=== PATIENT | female | born 1995 | race Caucasian/White ===

== ENCOUNTER 2020-06-07 17:22 | Emergency (ER) | payer MEDICAID ==
--- NOTE | 2020-06-07 18:28 | EDM.PDOC ---
ED HPI GENERAL MEDICAL PROBLEM - General Chief Complaint: General Stated Complaint: LT SIDE TOOTH PAIN Time Seen by Provider: 06/07/20 18:00 Source of Information: Reports: Patient History Limitations: Reports: No Limitations - History of Present Illness INITIAL COMMENTS - FREE TEXT/NARRATIVE: chief complaint: dental pain This is a 25 year old female present to the ER for dental pain. She was seen earlier today in [facility]. Given Toradol shot and amoxicillin. She reports still having pain on scale of 0 to 10 rates 9.5. She wouldn't be here but can't stand the pain anymore. Next Dental appointment June 27, 2020. 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: Social & Family History - Family History Family Medical History: Noncontributory - Tobacco Use Smoking Status *Q: Current Every Day Smoker Years of Tobacco use: 5 Packs/Tins Daily: 0.3 - Caffeine Use Caffeine Use: Reports: None - Recreational Drug Use Recreational Drug Use: No - Living Situation & Occupation Living situation: Reports: Single (lives in [facility] with family.) ED ROS GENERAL - Review of Systems Review Of Systems: See Below Constitutional: Reports: Other (dental pain) HEENT: Reports: Dental Pain, Ear Pain (left ear pain) Respiratory: Reports: No Symptoms Cardiovascular: Reports: No Symptoms Endocrine: Reports: No Symptoms GI/Abdominal: Reports: No Symptoms Skin: Reports: No Symptoms Neurological: Reports: No Symptoms Psychiatric: Reports: No Symptoms Hematologic/Lymphatic: Reports: No Symptoms Immunologic: Reports: No Symptoms ED EXAM, GENERAL - Physical Exam Exam: See Below Exam Limited By: No Limitations General Appearance: Alert, WD/WN, Mild Distress Eye Exam: Bilateral Eye: PERRL Ears: Normal External Exam, Normal Canal, Hearing Grossly Normal, Normal TMs Ear Exam: Left Ear: Tenderness Nose: Normal Inspection, Normal Mucosa, No Blood Throat/Mouth: Normal Inspection, Normal Lips, Other (left upper teeth with pain with touch, gums with mild inflammation. no cavities noted.) Head: Atraumatic, Normocephalic Neck: Normal Inspection, Supple, Non-Tender, Full Range of Motion Respiratory/Chest: No Respiratory Distress, Lungs Clear, Normal Breath Sounds, No Accessory Muscle Use, Chest Non-Tender Cardiovascular: Regular Rate, Rhythm, No Murmur Psychiatric: Normal Affect, Normal Mood Skin Exam: Warm, Dry, Intact, Normal Color, No Rash Lymphatic: No Adenopathy Course - Vital Signs Last Recorded V/S: Last Vital Signs Temp 36.3 C 06/07/20 18:08 Pulse 71 06/07/20 18:08 Resp 12 06/07/20 18:08 BP 127/55 L 06/07/20 18:08 Pulse Ox 97 06/07/20 18:08 Departure - Departure Time of Disposition: 18:39 Disposition: Home, Self-Care 01 Condition: Good Clinical Impression: Pain, dental - Discharge Information *PRESCRIPTION DRUG MONITORING PROGRAM REVIEWED*: Not Applicable *COPY OF PRESCRIPTION DRUG MONITORING REPORT IN PATIENT KRISTIE: Not Applicable Referrals: PCP,None [Primary Care Provider] - Forms: ED Department Discharge Care Plan Goals: Dental Pain -continue over the counter Motrin and Tylenol as directed -[place] one tablet every 4 to 6 hours as needed for pain #10 -soft diet, avoid hot or cold foods or drink -referral to Dental Clinic in am Return to ER for any nausea, vomiting, rash, fever, chills, facial swelling or a ny concerns. Sepsis Event Note (ED) - Evaluation Sepsis Screening Result: No Definite Risk - Focused Exam Vital Signs: Vital Signs Temp Pulse Resp BP Pulse Ox 06/07/20 18:08 36.3 C 71 12 127/55 L 97 06/07/20 17:51 36.3 C 71 12 127/55 L 97 - Problem List & Annotations (1) Pain, dental SNOMED Code(s): 63549638 Code(s): K08.89 - OTHER SPECIFIED DISORDERS OF TEETH AND SUPPORTING STRUCTURES Status: Acute Priority: High Current Visit: Yes - Problem List Review Problem List Initiated/Reviewed/Updated: Yes - Assessment/Plan Plan: Dental Pain -continue over the counter Motrin and Tylenol as directed -[place] one tablet every 4 to 6 hours as needed for pain #10 -soft diet, avoid hot or cold foods or drink -referral to Dental Clinic in am Return to ER for any nausea, vomiting, rash, fever, chills, facial swelling or any concerns.
== END 2020-06-07 18:42 | disposition home or self-care (01) ==
LOC: JP.ED 17:22
DX: K08.89 Other specified disorders of teeth and supporting structures (principal); F17.210 Nicotine dependence, cigarettes, uncomplicated
CPT/HCPCS: 99282

== ENCOUNTER 2020-06-09 10:35 | Emergency (ER) | payer MEDICAID ==
--- NOTE | 2020-06-09 11:06 | EDM.PDOC ---
ED HPI GENERAL MEDICAL PROBLEM - General Chief Complaint: ENT Problem Stated Complaint: LEFT SIDE TOOTH PAIN Time Seen by Provider: 06/09/20 10:57 Source of Information: Reports: Patient History Limitations: Reports: No Limitations - History of Present Illness INITIAL COMMENTS - FREE TEXT/NARRATIVE: Patient presents describing left upper jaw tooth pain present over the last cou ple of days. She denies any history of trauma to the tooth but believes that there may be some kind of cavity between 2 of the left upper teeth. Pain began earlier in the week and she contacted primary care because her dentist office was not available. The patient was placed on amoxicillin, given a shot of Toradol and has been using ibuprofen and Orajel intermittently. Nothing is helping. She gets intermittent shooting/stabbing pains from the left upper posterior teeth which go up along the side of her head and down into the mandible on the same side. She denies any drainage in the mouth or unusual tastes. She did not sleep well last night because of pain. She has a broken tooth on the right side up above but it does not cause discomfort for her. She is not sure when she would be able to get into her dentist in the near term. Onset: Sudden Duration: Intermittent Quality: Reports: Stabbing, Throbbing Severity: Moderate Improves with: Reports: None Worsens with: Reports: Eating Associated Symptoms: Reports: Headaches Left Tooth/Teeth Pain Score (Numeric/FACES): 7 - Related Data Allergies Allergy/AdvReac Type Severity Reaction Status Date / Time No Known Allergies Allergy Verified 06/07/20 18:11 Home Meds: Home Meds Amoxicillin 500 mg PO TID 06/07/20 [History] Hydrocodone/Acetaminophen [[place] 5-325 Tablet] 1 each PO Q4HR 06/09/20 [History] Ibuprofen 200 mg PO Q6HR 06/09/20 [History] Past Medical History - Past Health History Medical/Surgical History: Denies 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 ED EXAM, ENT - Physical Exam Exam: See Below Exam Limited By: No Limitations General Appearance: Mild Distress Mouth/Throat: Dental Pain. No: Dental Abcess (The pain is located on or around tooth #15. She describes a dark appearance and substance of the enamel of tooth #15. On closer illuminated inspection I see a small lozano zone but no other obvious surface defect. The gums are normal in appearance as is the rest of the mouth.), Peritonsillar Mass, Throat Swelling, Tongue Swelling Course - Vital Signs Last Recorded V/S: Last Vital Signs Temp 36.3 C 06/09/20 10:51 Pulse 80 06/09/20 10:51 Resp 14 06/09/20 10:51 BP 132/81 06/09/20 10:51 Pulse Ox 96 06/09/20 10:51 - Re-Assessments/Exams Free Text/Narrative Re-Assessment/Exam: 06/09/20 12:14 I discussed options for her including an injection of bupivacaine with epinephrine. She states that she wishes to avoid injections at this time. She has amoxicillin which may or may not change anything for her symptoms. She has been using ibuprofen 800 mg and I recommend she continue that 3 times a day. I discussed the use of chewing gum or dental wax to cover the painful area. She was sent with a prescription for hydrocodone 5/325 mg, 20 tablets; use as directed. If she is not feeling any relief, the option for bupivacaine injection always exists. Part of her description of symptoms actually sounds somewhat like trigeminal neuralgia but the patient is focused on her left upper tooth as being the source of discomfort. If she returns, other considerations may have to be entertained. Departure - Departure Time of Disposition: 11:22 Disposition: Home, Self-Care 01 Condition: Good Clinical Impression: Pain, dental - Discharge Information *PRESCRIPTION DRUG MONITORING PROGRAM REVIEWED*: Not Applicable *COPY OF PRESCRIPTION DRUG MONITORING REPORT IN PATIENT KRISTIE: Not Applicable Instructions: Acute Pain, Adult Referrals: PCP,None [Primary Care Provider] - Forms: ED Department Discharge Additional Instructions: Try using a piece of chewing gum molded over the painful tooth region to keep the air off of it. Another option is to get dental wax, which is used to cover the wires from races and apply that to the area between the teeth again hoping to keep air off the point of irritation. I recommend ibuprofen 800 mg 3 times a day regularly. You can use hydrocodone for additional pain relief but nothing will make this pain-free. Given how the gum area and tooth appear, occasionally people can have facial nerve irritation that gives the same kind of symptoms. Continue the previously prescribed antibiotic and contact your dental office when they reopen next week. If feeling worse, return here. You can receive an injection of an intermediate acting Novocain that would make the tooth pain free for about 6 hours. Sepsis Event Note (ED) - Evaluation Sepsis Screening Result: No Definite Risk - Focused Exam Vital Signs: Vital Signs Temp Pulse Resp BP Pulse Ox 06/09/20 10:51 36.3 C 80 14 132/81 96 06/09/20 10:45 36.3 C 80 14 132/81 96
== END 2020-06-09 11:34 | disposition home or self-care (01) ==
LOC: JP.ED 10:35
DX: K08.89 Other specified disorders of teeth and supporting structures (principal); Z79.899 Other long term (current) drug therapy; F17.210 Nicotine dependence, cigarettes, uncomplicated
CPT/HCPCS: 99282

== ENCOUNTER 2020-06-12 16:46 | Emergency (ER) | payer MEDICAID ==
--- NOTE | 2020-06-12 17:50 | EDM.PDOC ---
ED HPI GENERAL MEDICAL PROBLEM - General Chief Complaint: ENT Problem Stated Complaint: TOOTH PAIN Time Seen by Provider: 06/12/20 17:30 Source of Information: Reports: Patient, Old Records History Limitations: Reports: No Limitations - History of Present Illness INITIAL COMMENTS - FREE TEXT/NARRATIVE: Patient has continued pain with the last molar- left upper jaw. No abscess is noted. She is taking her amoxicillin TID as prescribed. She has had 30 tabs of Coral prescribed and states that she is taking them as prescribed. She does not appear to be seeking- I believe that she is legit in pain. She has a root canal scheduled for Thursday in [place]. She states that she is taking ibuprofen between norco doses around the clock without much relief. Orajel is not effective or he lpful either. 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, Other Medication(s) (norco) - Related Data Allergies Allergy/AdvReac Type Severity Reaction Status Date / Time No Known Allergies Allergy Verified 06/07/20 18:11 Home Meds: Home Meds Amoxicillin 500 mg PO TID 06/07/20 [History] Hydrocodone/Acetaminophen [[place] 5-325 Tablet] 1 each PO Q4HR 06/09/20 [History] Ibuprofen 200 mg PO Q6HR 06/09/20 [History] Past Medical History - Past Health History Medical/Surgical History: Denies 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 Denies: Ear Discharge, Eye Discharge, Eye Pain Respiratory: Reports: No Symptoms Cardiovascular: Reports: No Symptoms Endocrine: Reports: No Symptoms GI/Abdominal: Reports: No Symptoms : Reports: No Symptoms Musculoskeletal: Reports: No Symptoms Skin: Reports: No Symptoms Neurological: Reports: No Symptoms Psychiatric: Reports: No Symptoms Hematologic/Lymphatic: Reports: No Symptoms Immunologic: Reports: No Symptoms ED EXAM, ENT - Physical Exam Exam: See Below Exam Limited By: No Limitations General Appearance: Alert, WD/WN, Mild Distress Eye Exam: Bilateral Eye: PERRL, Other (pupils are not constricted) Ears: Normal External Exam, Normal Canal, Hearing Grossly Normal, Normal TMs Nose: Normal Inspection, Normal Mucousa Mouth/Throat: Normal Inspection, Normal Gums, Normal Oropharynx, Dental Pain, Dental Tenderness (last left upper molar). No: Gum Swelling, Lip Swelling, Peritonsillar Mass, Pharyngeal Erythema, Throat Pain, Throat Swelling, Tonsillar Erythema Head: Atraumatic, Normocephalic, Facial Tenderness (minor tenderness over frontal and maxillary sinuses on left side) Neck: Normal Inspection, Supple. No: Lymphadenopathy (R), Lymphadenopathy (L) Respiratory/Chest: No Respiratory Distress, Lungs Clear Cardiovascular: Normal Peripheral Pulses, Regular Rate, Rhythm Course - Vital Signs Last Recorded V/S: Last Vital Signs Temp 96.8 F L 06/12/20 17:21 Pulse 81 06/12/20 17:21 Resp 16 06/12/20 17:21 BP 138/83 06/12/20 17:21 Pulse Ox 99 06/12/20 17:21 Departure - Departure Time of Disposition: 17:45 Disposition: Home, Self-Care 01 Clinical Impression: Abscess of pulp of tooth, Pain, dental - Discharge Information *PRESCRIPTION DRUG MONITORING PROGRAM REVIEWED*: No *COPY OF PRESCRIPTION DRUG MONITORING REPORT IN PATIENT KRISTIE: Not Applicable Referrals: PCP,None [Primary Care Provider] - Forms: ED Department Discharge Additional Instructions: Keep your dental appointment for Thursday in [place]. You have been given Percocet (ten tabs) for pain relief. Continue with 600mg of ibuprofen every 6 hours with food and use the percocet for break through pain and at bedtime. Continue to eat soft foods and drink fluids to stay hydrated. Call or return to ED with any worsening of symptoms. Sepsis Event Note (ED) - Evaluation Sepsis Screening Result: No Definite Risk - Focused Exam Vital Signs: Vital Signs Temp Pulse Resp BP Pulse Ox 06/12/20 17:21 96.8 F L 81 16 138/83 99 06/12/20 16:57 96.8 F L 81 16 138/83 99 - Assessment/Plan Plan: discharge home with #10 percocet. will see dentist on thursday for planned root canal.
== END 2020-06-12 18:05 | disposition home or self-care (01) ==
LOC: JP.ED 16:46
DX: K04.01 Reversible pulpitis (principal); F17.210 Nicotine dependence, cigarettes, uncomplicated
CPT/HCPCS: 99282

== ENCOUNTER 2020-07-12 12:53 | Emergency (ER) | payer MEDICAID ==
--- NOTE | 2020-07-12 14:04 | EDM.PDOC ---
ED HPI GENERAL MEDICAL PROBLEM - General Chief Complaint: ENT Problem Stated Complaint: L & R SIDE TOOTH PAIN Time Seen by Provider: 07/12/20 13:45 Source of Information: Reports: Patient History Limitations: Reports: No Limitations - History of Present Illness INITIAL COMMENTS - FREE TEXT/NARRATIVE: 25-year-old female with dental pain. She was previously seen with an abscess on the left side and had a root canal she has another appointment to "finish the root canal" in 5 days. She has been taking Tylenol and ibuprofen and is not covering the pain. She called the dentist who sent her to the clinic who sent her to the emergency room. 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 She is miserable. 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: - Infectious Disease History Infectious Disease History: Reports: Chicken Pox Social & Family History - Family History Family Medical History: Noncontributory - Tobacco Use Smoking Status *Q: Current Every Day Smoker Years of Tobacco use: 5 Packs/Tins Daily: 0.5 Used Tobacco, but Quit: No Second Hand Smoke Exposure: Yes - Caffeine Use Caffeine Use: Reports: None - Recreational Drug Use Recreational Drug Use: No - Living Situation & Occupation Living situation: Reports: Single (lives in [facility] with family[facility] ED ROS ENT - Review of Systems Review Of Systems: See Below Constitutional: Denies: Fever, Chills Respiratory: Denies: Shortness of Breath Cardiovascular: Denies: Chest Pain GI/Abdominal: Denies: Nausea, Vomiting Skin: Denies: Erythema Neurological: Denies: Headache ED EXAM, ENT - Physical Exam Exam: See Below Exam Limited By: No Limitations General Appearance: Alert, No Apparent Distress (Looks uncomfortable but not distressed) Mouth/Throat: Other (Left second maxillary molar has recent dental work, there appears to be partial filling work on the right second molar) Head: Atraumatic Neck: Supple, Non-Tender. No: Lymphadenopathy (R), Lymphadenopathy (L) Respiratory/Chest: No Respiratory Distress, Lungs Clear Neurological: Alert, Oriented Psychiatric: Normal Affect, Normal Mood Skin: Warm, Dry Course - Vital Signs Last Recorded V/S: Last Vital Signs Temp 97.8 F 07/12/20 13:26 Pulse 77 07/12/20 13:26 Resp 18 07/12/20 13:26 BP 112/82 07/12/20 13:26 Pulse Ox 98 07/12/20 13:26 - Re-Assessments/Exams Free Text/Narrative Re-Assessment/Exam: 07/12/20 14:12 An additional 15 Percocet were given for extra pain control and she is to follow-up with a dentist as scheduled. Departure - Departure Time of Disposition: 14:10 Disposition: Home, Self-Care 01 Clinical Impression: Pain, dental - Discharge Information Instructions: Acute Pain, Adult Referrals: PCP,None [Primary Care Provider] - Forms: ED Department Discharge Care Plan Goals: Continue with ibuprofen on a regular basis and add stronger pain medication as needed. Recheck as scheduled. Sepsis Event Note (ED) - Evaluation Sepsis Screening Result: No Definite Risk - Focused Exam Vital Signs: Vital Signs Temp Pulse Resp BP Pulse Ox 07/12/20 13:26 97.8 F 77 18 112/82 98 07/12/20 13:23 97.8 F 77 18 112/82 98
== END 2020-07-12 14:10 | disposition home or self-care (01) ==
LOC: JP.ED 12:53
DX: K08.89 Other specified disorders of teeth and supporting structures (principal); F17.210 Nicotine dependence, cigarettes, uncomplicated
CPT/HCPCS: 99282

== ENCOUNTER 2020-07-25 12:42 | Emergency (ER) | payer MEDICAID ==
--- NOTE | 2020-07-25 13:31 | EDM.PDOC ---
ED HPI GENERAL MEDICAL PROBLEM - General Chief Complaint: ENT Problem Time Seen by Provider: 07/25/20 13:15 - History of Present Illness INITIAL COMMENTS - FREE TEXT/NARRATIVE: This is a 25-year-old female who presents with right upper molar dental pain. This is been an ongoing issue for her for the last 2 months. She has a cavity in one of her upper molars. She reports she was seen by dentist in [place], then referred to [place], where the provider was unable to work with her insurance. She has completed a course of antibiotics. Last night the pain became unbearable and she was up much of the night. She knows that the ED cannot offer her treatment for her dental condition, but is hoping to get better pain control. She denies any systemic symptoms such as fevers or chills, weakness, or fatigue. She reports she has a high pain tolerance but that Tylenol still is not working. 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: - Infectious Disease History Infectious Disease History: Reports: None Social & Family History - Family History Family Medical History: Noncontributory - Tobacco Use Smoking Status *Q: Current Every Day Smoker Years of Tobacco use: 5 Packs/Tins Daily: 0.5 - Caffeine Use Caffeine Use: Reports: None - Recreational Drug Use Recreational Drug Use: No - Living Situation & Occupation Living situation: Reports: Single (lives in [facility] with family.) ED ROS ENT - Review of Systems Review Of Systems: See Below Constitutional: Reports: No Symptoms HEENT: Reports: Dental Pain Respiratory: Reports: No Symptoms Cardiovascular: Reports: No Symptoms Endocrine: Reports: No Symptoms GI/Abdominal: Reports: No Symptoms : Reports: No Symptoms Musculoskeletal: Reports: No Symptoms Skin: Reports: No Symptoms Neurological: Reports: No Symptoms Psychiatric: Reports: No Symptoms Hematologic/Lymphatic: Reports: No Symptoms Immunologic: Reports: No Symptoms ED EXAM, ENT - Physical Exam Exam: See Below Exam Limited By: No Limitations General Appearance: Alert, No Apparent Distress Ears: Normal External Exam Nose: Normal Inspection Mouth/Throat: Other (dental josefina evident on right upper molar, no swelling or erythema) Head: Atraumatic, Normocephalic Neck: Normal Inspection Respiratory/Chest: No Respiratory Distress Cardiovascular: Regular Rate, Rhythm GI/Abdominal: No Distention Back: Normal Inspection Extremities: Normal Inspection Neurological: Alert, Oriented Psychiatric: Normal Affect, Normal Mood Skin: Warm, Dry Course - Vital Signs Last Recorded V/S: Last Vital Signs Temp 36.4 C 07/25/20 13:08 Pulse 70 07/25/20 13:08 Resp 16 07/25/20 13:08 BP 111/68 07/25/20 13:08 Pulse Ox 96 07/25/20 13:08 - Re-Assessments/Exams Free Text/Narrative Re-Assessment/Exam: 25-year-old presents with concerns of dental pain around a cavity of an upper right molar. She denies any systemic symptoms. Normal vitals. Exam shows a cavity in 1 of her molars, but no surrounding erythema or evidence of abscess. Discussed with her that we do not have treatment options for this in the ED. Unfortunate that she is unable to get her insurance accepted at a dental office but she will need to be working with a dentist for this condition. I did prescribe her 2 oxycodone tabs to help with symptom control until she is able to get into the dental clinic, ED staff did call over to both [place] and [place] clinics and they are willing to work with the patient. 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 07/25/20 13:39 Departure - Departure Time of Disposition: 13:29 Disposition: Home, Self-Care 01 Clinical Impression: Pain, dental - Discharge Information Prescriptions: oxyCODONE 5 mg PO Q4HR PRN #2 tab PRN Reason: Pain Instructions: Acute Pain, Adult Referrals: PCP,None [Primary Care Provider] - Forms: ED Department Discharge Additional Instructions: Unfortunately we cannot offer the dental services that you need in the ED. We are prescribing you two pain pills to help with pain today and tonight but you will need to work with the dentist in [place] or [place] going forward. Sepsis Event Note (ED) - Evaluation Sepsis Screening Result: No Definite Risk - Focused Exam Vital Signs: Vital Signs Temp Pulse Resp BP Pulse Ox 07/25/20 13:08 36.4 C 70 16 111/68 96
== END 2020-07-25 13:43 | disposition home or self-care (01) ==
LOC: JP.ED 12:42
DX: K02.9 Dental caries, unspecified (principal); F17.210 Nicotine dependence, cigarettes, uncomplicated
CPT/HCPCS: 99282

== ENCOUNTER 2020-12-09 14:03 | Emergency (ER) | payer MEDICAID ==
--- NOTE | 2020-12-09 14:36 | EDM.PDOC ---
ED HPI GENERAL MEDICAL PROBLEM - General Chief Complaint: ENT Problem Stated Complaint: TOOTH PAIN Time Seen by Provider: 12/09/20 14:25 Source of Information: Reports: Patient, RN Notes Reviewed History Limitations: Reports: No Limitations - History of Present Illness INITIAL COMMENTS - FREE TEXT/NARRATIVE: 25-year-old female presents emergency department complaint of dental pain, she has had some hot flashes some facial swelling she has been unable to get into a dentist using ibuprofen for pain - Related Data Allergies Allergy/AdvReac Type Severity Reaction Status Date / Time No Known Allergies Allergy Verified 12/09/20 14:18 Home Meds: Home Meds Amoxicillin 875 mg PO BID #14 tablet 12/09/20 [Rx] Hydrocodone/Acetaminophen [Hydrocodon-Acetaminophen 5-325] 1 each PO Q6H PRN #10 tablet 12/09/20 [Rx] 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: - Infectious Disease History Infectious Disease History: Reports: None Social & Family History - Family History Family Medical History: No Pertinent Family History - Tobacco Use Tobacco Use Status *Q: Current Every Day Tobacco User Years of Tobacco use: 8 Packs/Tins Daily: 0.7 - Caffeine Use Caffeine Use: Reports: None - Living Situation & Occupation Living situation: Reports: Single (lives in [facility] with family[facility] ED ROS ENT - Review of Systems Review Of Systems: See Below Constitutional: Reports: Fever HEENT: Reports: Dental Pain ED EXAM, ENT - Physical Exam Exam: See Below Text/Narrative:: Mouth mucosa is moist and pink dentition is poor tooth #2 is partially broken with dental caries tender around that tooth Exam Limited By: No Limitations General Appearance: Alert, WD/WN, No Apparent Distress Course - Vital Signs Last Recorded V/S: Last Vital Signs Temp 97.2 F 12/09/20 14:15 Pulse 93 12/09/20 14:15 Resp 16 12/09/20 14:15 BP 139/76 12/09/20 14:15 Pulse Ox 98 12/09/20 14:15 Departure - Departure Time of Disposition: 14:35 Disposition: Home, Self-Care 01 Condition: Fair (None) Clinical Impression: Dental abscess - Discharge Information Prescriptions: Amoxicillin 875 mg PO BID #14 tablet Hydrocodone/Acetaminophen [Hydrocodon-Acetaminophen 5-325] 1 each PO Q6H PRN #10 tablet PRN Reason: Pain Instructions: Dental Abscess, [id number] Referrals: PCP,None [Primary Care Provider] - Additional Instructions: Take full course of antibiotics, use ibuprofen for baseline pain control use hydrocodone for breakthrough pain a referral has been sent to the dental clinic for December 11Thursday please report at 815 he will be seen during the day Sepsis Event Note (ED) - Evaluation Sepsis Screening Result: No Definite Risk - Focused Exam Vital Signs: Vital Signs Temp Pulse Resp BP Pulse Ox 12/09/20 14:15 97.2 F 93 16 139/76 98 - Assessment/Plan Plan: Assessment Acuity = acute Site and laterality = dental abscess tooth #2 Etiology = dental caries and bacterial cause Manifestations = pain Location of injury = Home Lab values = none Plan Treat with amoxicillin 875 p.o. twice daily x10 days along with hydrocodone 5/325 1 tab p.o. every 6 hours as needed total #10 she does have a referral with the dental clinic on December 11, 2020 This note was dictated using [employer] voice recognition software please call with any questions on syntax or grammar.
== END 2020-12-09 14:41 | disposition home or self-care (01) ==
LOC: JP.ED 14:03
DX: K04.7 Periapical abscess without sinus (principal); K02.9 Dental caries, unspecified; F17.210 Nicotine dependence, cigarettes, uncomplicated
CPT/HCPCS: 99282; 99283

== ENCOUNTER 2020-12-11 09:09 | Emergency (ER) | payer MEDICAID ==
--- NOTE | 2020-12-11 10:01 | EDM.PDOC ---
ED HPI GENERAL MEDICAL PROBLEM - General Chief Complaint: ENT Problem Stated Complaint: UPPER R MOLAR PAIN Time Seen by Provider: 12/11/20 09:50 Source of Information: Reports: Patient, Old Records, RN Notes Reviewed History Limitations: Reports: No Limitations - History of Present Illness INITIAL COMMENTS - FREE TEXT/NARRATIVE: 25-year-old female presents emergency department today requesting pain medications. I had the opportunity to evaluate her 2 days prior did set her up to see the community dentist who she did see today she has 1 hydrocodone tablet left the dentist prefer that she use ibuprofen for her pain control. 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: - Infectious Disease History Infectious Disease History: Reports: None Social & Family History - Family History Family Medical History: No Pertinent Family History - Tobacco Use Tobacco Use Status *Q: Current Every Day Tobacco User Years of Tobacco use: 10 Packs/Tins Daily: 0.5 - Caffeine Use Caffeine Use: Reports: Soda - Recreational Drug Use Recreational Drug Use: No - Living Situation & Occupation Living situation: Reports: Single (lives in [facility] with family.) ED ROS GENERAL - Review of Systems Review Of Systems: See Below HEENT: Reports: Dental Pain ED EXAM, GENERAL - Physical Exam Exam: See Below Exam Limited By: No Limitations General Appearance: Alert, Other (Tearful) Course - Vital Signs Last Recorded V/S: Last Vital Signs Temp 97.6 F 12/11/20 09:30 Pulse 83 12/11/20 09:30 Resp 16 12/11/20 09:30 BP 128/51 L 12/11/20 09:30 Pulse Ox 98 12/11/20 09:30 Departure - Departure Time of Disposition: 10:01 Disposition: Home, Self-Care 01 Condition: Poor Clinical Impression: Pain, dental - Discharge Information Referrals: PCP,None [Primary Care Provider] - Additional Instructions: Please establish with primary care as soon as possible keep your dental referral Sepsis Event Note (ED) - Evaluation Sepsis Screening Result: No Definite Risk - Focused Exam Vital Signs: Vital Signs Temp Pulse Resp BP Pulse Ox 12/11/20 09:30 97.6 F 83 16 128/51 L 98 - Assessment/Plan Plan: Assessment Acuity = acute Site and laterality = dental pain Etiology = dental caries Manifestations = none Location of injury = Home Lab values = none Plan I granted her for hydrocodone 5/325 1 tab p.o. every 4-6 hours as needed she needs to establish with a primary care This note was dictated using [employer] voice recognition software please call with any questions on syntax or grammar.
== END 2020-12-11 10:06 | disposition home or self-care (01) ==
LOC: JP.ED 09:09
DX: K02.9 Dental caries, unspecified (principal); Z72.0 Tobacco use
CPT/HCPCS: 99282; 99283

== ENCOUNTER 2021-08-06 17:49 | Emergency (ER) | payer MEDICAID ==
[2021-08-06] MEDS ORDERED: Ketorolac 30 MG/ML SDV IM ONE (18:45)
--- NOTE | 2021-08-06 18:45 | EDM.PDOC ---
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 No significant or specific trauma, no fevers or chills, no rashes over the painful area. Today she had some very intense increase in the discomfort radiating from her left sacral area through the buttock and down to her left knee and proximal left calf. It is painful to bear weight. She has no swelling or bruising. She took some ibuprofen but it did not seem to help. Onset: Gradual (Gradual increase in pain over the past month but a very sudden increase today) Duration: Hour(s): (Intense pain for the last 6 hours) Location: Reports: Lower Extremity, Left Quality: Reports: Sharp, Stabbing Improves with: Reports: Rest Worsens with: Reports: Other (Weightbearing), Movement Associated Symptoms: Reports: No Other Symptoms Left Leg Pain Score (Numeric/FACES): 9 - Related Data Allergies Allergy/AdvReac Type Severity Reaction Status Date / Time No Known Allergies Allergy Verified 08/06/21 18:18 Home Meds: Home Meds NK [No Known Home Meds] 08/06/21 [History] Past Medical History - Past Health History Medical/Surgical History: Denies 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) Review of Systems - Review of Systems Review Of Systems: See Below Constitutional: Denies: Fever Respiratory: Denies: Shortness of Breath Cardiovascular: Denies: Chest Pain Genitourinary: Reports: No Symptoms Musculoskeletal: Denies: Neck Pain, Back Pain Skin: Reports: No Symptoms. Denies: Rash Neurological: Denies: Paresthesia (No numbness of the left leg, just pain) ED EXAM, GENERAL - Physical Exam Exam: See Below Exam Limited By: No Limitations General Appearance: Alert, No Apparent Distress, Other (Looks uncomfortable but not distressed) Head: Atraumatic Respiratory/Chest: No Respiratory Distress Cardiovascular: Regular Rate, Rhythm Extremities: Leg Pain (Patient has significant palpation tenderness on the proximal aspect of the left gluteal muscle into the lateral hip and anterior medial thigh. Increased pain with internal and external rotation passively, no radiculopathy with straight leg raising. No distal edema). No: Joint Swelling Neurological: Alert, Oriented Course - Vital Signs Last Recorded V/S: Last Vital Signs Temp 97.6 F 08/06/21 18:19 Pulse 88 08/06/21 18:19 Resp 16 08/06/21 18:19 BP 122/77 08/06/21 18:19 Pulse Ox 96 08/06/21 18:19 - Orders/Labs/Meds Meds: Medications Discontinued Medications Generic Name Dose Route Start Last Admin Trade Name Sofi PRN Reason Stop Dose Admin Ketorolac Tromethamine 30 mg 08/06/21 18:45 08/06/21 19:08 Ketorolac 30 Mg/Ml Sdv IM 08/06/21 18:46 30 mg ONETIME ONE Administration - Re-Assessments/Exams Free Text/Narrative Re-Assessment/Exam: 08/06/21 22:39 Patient was given 30 mg of Toradol IM and reexamined 45 minutes later. Moderate pain relief was obtained that there was still a burning neuropathic pain. This is likely sciatica for an unknown reason at her age. She will be placed on a Medrol Dosepak along with 10 hydrocodone to use sparingly over the next couple days for extra pain control. I think she needs to recheck at the urgent care or regular clinic in the next few days if not improving for a physical therapy consultation or possibly more evaluation such as MRI of the back or nerve studies. I told her to watch for a rash or bruising. Departure - Departure Time of Disposition: 19:49 Disposition: Home, Self-Care 01 Clinical Impression: Left sided sciatica - Discharge Information Instructions: Sciatica, [id number] Referrals: PCP,None [Primary Care Provider] - Forms: ED Department Discharge Care Plan Goals: Continue with a regular dose of ibuprofen, start steroids tomorrow as prescribed and use hydrocodone as needed for extra pain control. Increase activity as tolerated and recheck in 2 to 3 days if not improving satisfactorily. Sepsis Event Note (ED) - Evaluation Sepsis Screening Result: No Definite Risk - Focused Exam Vital Signs: Vital Signs Temp Pulse Resp BP Pulse Ox 08/06/21 18:19 97.6 F 88 16 122/77 96 08/06/21 18:18 97.6 F 88 16 122/77 96 08/06/21 18:14 97.6 F 88 16 122/77 96
== END 2021-08-06 19:54 | disposition home or self-care (01) ==
LOC: JP.ED 17:49
DX: M54.32 Sciatica, left side (principal); Z72.0 Tobacco use
CPT/HCPCS: 96372; 99283; J1885

== ENCOUNTER 2021-12-10 18:27 | Emergency (ER) | payer MEDICAID | END 2021-12-10 19:14 | disposition home or self-care (01) | LOC: JP.ED 18:27 | DX: M54.50 Low back pain, unspecified (principal) | CPT/HCPCS: 99283 ==

== ENCOUNTER 2021-12-14 17:33 | Emergency (ER) | payer MEDICAID ==
[2021-12-14] MEDS ORDERED: Ketorolac 30 MG/ML SDV IM ONE (18:39)
== END 2021-12-14 18:52 | disposition home or self-care (01) ==
LOC: JP.ED 17:33
DX: M54.50 Low back pain, unspecified (principal); G89.29 Other chronic pain; Z72.0 Tobacco use
CPT/HCPCS: 96372; 99283; J1885

== ENCOUNTER 2021-12-21 18:41 | Emergency (ER) | payer MEDICAID | END 2021-12-21 20:13 | disposition home or self-care (01) | LOC: JP.ED 18:41 | DX: M54.50 Low back pain, unspecified (principal) | CPT/HCPCS: 81001; 81025; 99283 ==

== ENCOUNTER 2022-01-14 21:29 | Emergency (ER) | payer MEDICAID ==
[2022-01-14] MEDS: Ketorolac 30 MG/ML SDV IM ONE (22:30)
== END 2022-01-14 22:31 | disposition home or self-care (01) ==
LOC: JP.ED 21:29
DX: G89.29 Other chronic pain (principal); M54.50 Low back pain, unspecified; Z72.0 Tobacco use
CPT/HCPCS: 99283

== ENCOUNTER 2023-01-10 16:40 | Emergency (ER) | payer MEDICAID ==
[2023-01-10] MEDS ORDERED: Ketorolac 30 MG/ML SDV IM ONE (17:32)
== END 2023-01-10 17:45 | disposition home or self-care (01) ==
LOC: JP.ED 16:40
DX: M54.42 Lumbago with sciatica, left side (principal); F17.210 Nicotine dependence, cigarettes, uncomplicated
CPT/HCPCS: 96372; 99282; J1885; 99283

== ENCOUNTER 2023-03-08 13:27 | Emergency (ER) | payer MEDICAID | END 2023-03-08 14:12 | disposition home or self-care (01) | LOC: JP.ED 13:27 | DX: K03.81 Cracked tooth (principal); K04.7 Periapical abscess without sinus; K02.9 Dental caries, unspecified | CPT/HCPCS: 99282 ==

== ENCOUNTER 2023-03-16 19:19 | Emergency (ER) | payer MEDICAID | END 2023-03-16 20:11 | disposition home or self-care (01) | LOC: JP.ED 19:19 | DX: K08.89 Other specified disorders of teeth and supporting structures (principal); Z72.0 Tobacco use | CPT/HCPCS: 99282 ==

== ENCOUNTER 2023-04-10 21:29 | Emergency (ER) | payer MEDICAID ==
[2023-04-10] MEDS ORDERED: Acetaminophen/HYDROcodone 325-10 MG Tab PO STA (22:19)
[2023-04-10] MEDS ORDERED: Ketorolac 30 MG/ML SDV IM STA (22:19)
== END 2023-04-10 22:52 | disposition home or self-care (01) ==
LOC: JP.ED 21:29
DX: K02.9 Dental caries, unspecified (principal)
CPT/HCPCS: 96372; 99282; A9270; J1885

== ENCOUNTER 2023-06-27 14:57 | Emergency (ER) | payer MEDICAID | END 2023-06-27 15:45 | disposition home or self-care (01) | LOC: JP.ED 14:57 | DX: K02.9 Dental caries, unspecified (principal); H66.92 Otitis media, unspecified, left ear; Z86.16 Personal history of COVID-19; Z72.0 Tobacco use | CPT/HCPCS: 99282 ==

== ENCOUNTER 2023-06-28 03:59 | Emergency (ER) | payer MEDICAID ==
[2023-06-28] MEDS ORDERED: Naloxone 0.4 MG/ML SDV IVPUSH PRN (04:39)
[2023-06-28] MEDS ORDERED: HYDROmorphone 0.5 MG/0.5 ML Syringe IM ONE (04:39)
[2023-06-28] MEDS ORDERED: Ofloxacin 0.3% Ophth Soln 5 ML Bottle EYELF ONE (04:43)
== END 2023-06-28 05:12 | disposition home or self-care (01) ==
LOC: JP.ED 03:59
DX: H60.502 Unspecified acute noninfective otitis externa, left ear (principal); H72.92 Unspecified perforation of tympanic membrane, left ear; H66.92 Otitis media, unspecified, left ear; K08.89 Other specified disorders of teeth and supporting structures; F17.210 Nicotine dependence, cigarettes, uncomplicated; Z79.899 Other long term (current) drug therapy; Z86.16 Personal history of COVID-19
CPT/HCPCS: 96372; 99282; A9270; J1170

== ENCOUNTER 2023-07-01 17:34 | Emergency (ER) | payer MEDICAID ==
[2023-07-01] MEDS ORDERED: Acetaminophen/oxyCODONE 325-10 MG Tab PO PRN (19:32)
== END 2023-07-01 20:00 | disposition home or self-care (01) ==
LOC: JP.ED 17:34
DX: H66.92 Otitis media, unspecified, left ear (principal); K02.9 Dental caries, unspecified; K08.89 Other specified disorders of teeth and supporting structures; Z86.16 Personal history of COVID-19; Z79.899 Other long term (current) drug therapy
CPT/HCPCS: 99282; A9270

== ENCOUNTER 2023-07-08 22:18 | Emergency (ER) | payer MEDICAID | END 2023-07-08 23:45 | disposition home or self-care (01) | LOC: JP.ED 22:18 | DX: K04.7 Periapical abscess without sinus (principal); F17.210 Nicotine dependence, cigarettes, uncomplicated; Z86.16 Personal history of COVID-19 | CPT/HCPCS: 99283 ==

== ENCOUNTER 2023-07-15 22:43 | Emergency (ER) | payer MEDICAID | END 2023-07-16 01:32 | disposition home or self-care (01) | LOC: JP.ED 22:43 | DX: K02.9 Dental caries, unspecified (principal); F17.210 Nicotine dependence, cigarettes, uncomplicated; Z86.16 Personal history of COVID-19 | CPT/HCPCS: 99282 ==

== ENCOUNTER 2023-08-17 18:11 | Emergency (ER) | payer MEDICAID | END 2023-08-17 19:59 | disposition home or self-care (01) | LOC: JP.ED 18:11 | DX: K04.7 Periapical abscess without sinus (principal); F17.210 Nicotine dependence, cigarettes, uncomplicated; Z86.16 Personal history of COVID-19 | CPT/HCPCS: 99282 ==

== ENCOUNTER 2023-08-25 15:00 | Emergency (ER) | payer MEDICAID | END 2023-08-25 17:45 | disposition home or self-care (01) | LOC: JP.ED 15:00 | DX: K08.89 Other specified disorders of teeth and supporting structures (principal); F17.210 Nicotine dependence, cigarettes, uncomplicated; Z86.16 Personal history of COVID-19 | CPT/HCPCS: 99282 ==

== ENCOUNTER 2023-09-09 18:57 | Emergency (ER) | payer MEDICAID | END 2023-09-09 22:07 | disposition home or self-care (01) | LOC: JP.ED 18:57 | DX: K02.9 Dental caries, unspecified (principal); F17.210 Nicotine dependence, cigarettes, uncomplicated; Z86.16 Personal history of COVID-19 | CPT/HCPCS: 99283 ==